=== PATIENT | male | born 1975 | race Caucasian/White ===

== ENCOUNTER 2017-01-09 08:08 | Emergency (ER) | payer OTHER ==
[2017-01-09] MEDS ORDERED: ASPIRIN 81 MG TABLET, CHEWABLE PO ONE (09:29)
[2017-01-09] MEDS ORDERED: HYDROCODONE/ACETAMINOPHEN 5-325 MG TABLET PO ONE (09:32)
--- NOTE | 2017-01-09 09:33 | ER Document Report ---
ED General - General Chief Complaint: Arm Pain Stated Complaint: LEFT ARM PAIN/NUMBNESS Time Seen by Provider: 01/09/17 09:18 Mode of Arrival: Ambulatory Information source: Patient Notes: 41-year-old male presents with complaints of left elbow pain rating to his shoulder. Patient notes it hurts when he pronates and supinates, otherwise he does not have any pain. Patient denies any chest pain shortness of breath difficulty breathing. Patient notes that he has had a history of 2 stents placed on the left. Patient denies any other concerns TRAVEL OUTSIDE OF THE [place] IN LAST 30 DAYS: No - HPI Onset: Yesterday - Currently 20 hour Onset/Duration: Persistent Quality of pain: Sharp Severity: Mild Pain Level: 1 Associated symptoms: Other Exacerbated by: Movement Relieved by: Denies Similar symptoms previously: No Recently seen / treated by doctor: Yes - Related Data Allergies/Adverse Reactions: codeine [Codeine] Allergy (Verified 09/24/10 11:32) Pruritis Past Medical History - Social History Smoking Status: Never Smoker Cigarette use (# per day): No Chew tobacco use (# tins/day): No Smoking Education Provided: No Family History: Reviewed & Not Pertinent Patient has suicidal ideation: No Patient has homicidal ideation: No - Past Medical History Cardiac Medical History: Denies: Hx Heart Attack, Hx Hypertension Pulmonary Medical History: Denies: Hx Asthma, Hx Bronchitis, Hx COPD, Hx Pneumonia, Hx Tuberculosis Neurological Medical History: Denies: Hx Cerebrovascular Accident, Hx Seizures Renal/ Medical History: Denies: Hx Peritoneal Dialysis GI Medical History: Denies: Hx Hepatitis, Hx Hiatal Hernia, Hx Ulcer Musculoskeltal Medical History: Infectious Medical History: Denies: Hx Hepatitis Past Surgical History: Denies: Hx Open Heart Surgery, Hx Pacemaker Review of Systems - Review of Systems Notes: REVIEW OF SYSTEMS: CONSTITUTIONAL : Denies fever, chills, or sweats. Denies recent illness. EENT: Denies eye, ear, throat, or mouth pain or symptoms. Denies nasal or sinus congestion or discharge. Denies throat, tongue, or mouth swelling or difficulty swallowing. CARDIOVASCULAR: Denies chest pain. Denies palpitations or racing or irregular heart beat. Denies ankle edema. RESPIRATORY: Denies cough, cold, or chest congestion. Denies shortness of breath, difficulty breathing, or wheezing. GASTROINTESTINAL: Denies abdominal pain or distention. Denies nausea, vomiting , or diarrhea. Denies blood in vomitus, stools, or per rectum. Denies black, tarry stools. Denies constipation. GENITOURINARY: Denies difficulty urinating, painful urination, burning, frequency, blood in urine, or discharge. MUSCULOSKELETAL: Admits to left elbow pain SKIN: Denies rash, lesions or sores. HEMATOLOGIC : Denies easy bruising or bleeding. LYMPHATIC: Denies swollen, enlarged glands. NEUROLOGICAL: Denies confusion or altered mental status. Denies passing out or loss of consciousness. Denies dizziness or lightheadedness. Denies headache. Denies weakness or paralysis or loss of use of either side. Denies problems with gait or speech. Denies sensory loss, numbness, or tingling. Denies seizures. PSYCHIATRIC: Denies anxiety or stress. Denies depression, suicidal ideation, or homicidal ideation. ALL OTHER SYSTEMS REVIEWED AND NEGATIVE. Dictation was performed using [employer] voice recognition software PHYSICAL EXAMINATION: GENERAL: Well-appearing, well-nourished and in no acute distress. HEAD: Atraumatic, normocephalic. EYES: Pupils equal round and reactive to light, extraocular movements intact, sclera anicteric, conjunctiva are normal. ENT: Nares patent, oropharynx clear without exudates. Moist mucous membranes. NECK: Normal range of motion, supple without lymphadenopathy LUNGS: Breath sounds clear to auscultation bilaterally and equal. No wheezes rales or rhonchi. HEART: Regular rate and rhythm without murmurs ABDOMEN: Soft, nontender, nondistended abdomen. No guarding, no rebound. No masses appreciated. Musculoskeletal: Normal range of motion, no pitting or edema. No cyanosis. Patient has pain sharp at the elbow with movement of the elbow NEUROLOGICAL: Cranial nerves grossly intact. Normal speech, normal gait. Normal sensory, motor exams PSYCH: Normal mood, normal affect. SKIN: Warm, Dry, normal turgor, no rashes or lesions noted. Physical Exam - Vital signs Vitals: Temp Pulse Resp BP Pulse Ox 97.6 F 79 16 150/92 H 97 01/09/17 08:09 01/09/17 08:09 01/09/17 08:09 01/09/17 08:09 01/09/17 08:09 Course - Re-evaluation Re-evalutation: 01/09/17 10:44 This pain is completely noncardiac in nature, it is easily reproducible worsens with movement. He has no chest pain involvement. However given his history I did do cardiac enzymes to rule out any life-threatening issues 01/09/17 10:56 Cardiac enzymes were negative EKG was normal patient otherwise looks well. I will therefore discharge him as his pain is completely reproducible and is a nerve impingement in the elbow Instructed to follow-up with his chemistry technologist and states he will do so After performing a Medical Screening Examination, I estimate there is LOW risk for RUPTURED ESOPHAGUS, PNEUMOTHORAX, PULMONARY EMBOLISM, ACUTE CORONARY SYNDROME, OR THORACIC AORTIC DISSECTION, thus I consider the discharge disposition reasonable. I have reevaluated this patient multiple times and no significant life threatening changes are noted. The patient and I have discussed the diagnosis and risks, and we agree with discharging home with close follow-up. We also discussed returning to the Emergency Department immediately if new or worsening symptoms occur. We have discussed the symptoms which are most concerning (e.g., bloody sputum, worsening pain or shortness of breath) that necessitate immediate return. - Vital Signs Vital signs: Temp Pulse Resp BP Pulse Ox 97.6 F 79 16 150/92 H 97 01/09/17 08:09 01/09/17 08:09 01/09/17 08:09 01/09/17 08:09 01/09/17 09:34 - Laboratory Result Diagrams: 01/09/17 09:56 01/09/17 09:56 Laboratory results interpreted by me: 01/09/17 09:56 RBC 5.67 H RDW 14.1 H - Diagnostic Test Radiology reviewed: Image reviewed, Reports reviewed - EKG Interpretation by Az EKG shows normal: Sinus rhythm, Dixon, Intervals, QRS Complexes Dixon/QRS: RBBB, LBBB Discharge - Discharge Clinical Impression: Left elbow pain Ulnar nerve impingement Qualifiers: Laterality: left Qualified Code(s): G56.22 - Lesion of ulnar nerve, left upper limb Condition: Stable Disposition: HOME, SELF-CARE Additional Instructions: At this point your pain is related to a nerve impingement, however if you begin to have chest pain this may be a different issue, return immediately if there are any other concerns Prescriptions: Hydrocodone/Acetaminophen [[place] 5-325 Tablet] 1 - 2 tab PO ASDIR PRN #15 tab PRN Reason: Prednisone [Deltasone 20 mg Tablet] 3 tab PO DAILY 5 Days Referrals: LEVAR CANTU MD [Primary Care Provider] - Follow up tomorrow
--- NOTE | 2017-01-09 09:57 | RADIOLOGY REPORT (SQ) ---
EXAM DESCRIPTION: CHEST SINGLE VIEW COMPLETED DATE/TIME: 01/09/2017 9:44 am REASON FOR STUDY: left arm pain COMPARISON: None. EXAM PARAMETERS: NUMBER OF VIEWS: One view. TECHNIQUE: Single frontal radiographic view of the chest acquired. RADIATION DOSE: NA LIMITATIONS: None. FINDINGS: LUNGS AND PLEURA: No opacities, masses or pneumothorax. No pleural effusion. MEDIASTINUM AND HILAR STRUCTURES: No masses. Contour normal. HEART AND VASCULAR STRUCTURES: Heart normal in size. Normal vasculature. BONES: No acute findings. HARDWARE: None in the chest. OTHER: No other significant finding. IMPRESSION: NO ACUTE RADIOGRAPHIC FINDING IN THE CHEST. TECHNICAL DOCUMENTATION: JOB ID: [id number]
[2017-01-09 10:13] LABS: ABSOLUTE BASOPHILS # (AUTO) 0.1 10^3/uL (0.0-0.2); ABSOLUTE EOSINOPHILS # (AUTO) 0.4 10^3/uL (0.0-0.6); ABSOLUTE LYMPHOCYTES (AUTO) 3.8 10^3/uL (0.5-4.7); ABSOLUTE MONOCYTES (AUTO) 0.6 10^3/uL (0.1-1.4); ABSOLUTE NEUT (AUTO) 4.2 10^3/uL (1.7-8.2); EOSINOPHILS % (AUTO) 4.1 % (0-6); HEMATOCRIT 50.4 % (37.9-51.0); HEMOGLOBIN 16.5 g/dL (13.5-17.0); HGB HCT DIFFERENCE -0.9; LYMPHOCYTES % (AUTO) 41.8 % (13-45); MEAN CORPUSCULAR HEMOGLOBIN 29.1 pg (27.0-33.4); MEAN CORPUSCULAR HGB CONC 32.7 g/dL (32.0-36.0); MEAN CORPUSCULAR VOLUME 89 fl (80-97); RED BLOOD COUNT 5.67 10^6/uL (4.35-5.55); RED CELL DISTRIBUTION WIDTH 14.1 % (11.5-14.0); SEGMENTED NEUTROPHILS % (AUTO) 46.1 % (42-78)
[2017-01-09 10:30] LABS: ALANINE AMINOTRANSFERASE 32 U/L (21-72); ALBUMIN 4.4 g/dL (3.5-5.0); ALKALINE PHOSPHATASE 59 U/L (38-126); ANION GAP 10 (5-19); ASPARTATE AMINO TRANSFERASE 21 U/L (17-59); BILIRUBIN,DIRECT 0.3 mg/dL (0.0-0.4); BILIRUBIN,TOTAL 0.5 mg/dL (0.2-1.3); BLOOD UREA NITROGEN 13 mg/dL (7-20); CALCIUM 9.9 mg/dL (8.4-10.2); CARBON DIOXIDE 26 mmol/L (22-30); CHLORIDE 105 mmol/L (98-107); CREATINE KINASE 85 U/L (55-170); CREATININE RESULT 1.07 mg/dL (0.52-1.25); GLUCOSE 79 mg/dL (75-110); POTASSIUM 4.6 mmol/L (3.6-5.0); TOTAL PROTEIN 7.7 g/dL (6.3-8.2)
[2017-01-09 10:42] LABS: CREATINE KINASE MB 0.54 ng/mL (<4.55); TROPONIN I < 0.012 ng/mL
[2017-01-09 11:14] VITALS: BP 132/91
--- NOTE | 2017-01-09 13:02 | EKG REPORT ---
SEVERITY:- ABNORMAL ECG - SINUS RHYTHM RBBB AND LAFB : Confirmed by: Rosa Sandhu MD 09-Jan-2017 13:01:43
== END 2017-01-09 11:14 | disposition home or self-care (01) ==
LOC: ER 08:08
DX: G56.22 Lesion of ulnar nerve, left upper limb (principal); M25.522 Pain in left elbow; I45.2 Bifascicular block; Z98.61 Coronary angioplasty status; Z88.5 Allergy status to narcotic agent
CPT/HCPCS: 36415; 71010; 80053; 82550; 82553; 84484; 85025; 93005; 93010; 99284

== ENCOUNTER 2017-08-03 01:04 | Emergency (ER) | payer SELFPAY ==
--- NOTE | 2017-08-03 01:50 | ER Document Report ---
HPI - HPI Patient complains to provider of: foot pain Pain Level: 5 Context: Patient is a 41-year-old male presents emergency department complaining of left posterior heel pain. Patient states that he had issues with this approximately 2 months ago that improved with diclofenac and steroids. States that his symptoms this time started yesterday and has been taking the diclofenac without any significant improvement in his symptoms. Patient states that he has not a runner but that he does walk a lot. States it is very tender to touch and erythematous but denies any break in the skin. He also admits today of having discomfort at the base of his chest and xiphoid process. Patient states that superficially tender denies any direct trauma. Otherwise he has not followed up with a primary care doctor regarding today's visit. Past medical history significant for coronary artery disease with stents. Past Medical History - Social History Smoking Status: Never Smoker Family History: Reviewed & Not Pertinent - Past Medical History Cardiac Medical History: Denies: Hx Heart Attack, Hx Hypertension Pulmonary Medical History: Denies: Hx Asthma, Hx Bronchitis, Hx COPD, Hx Pneumonia, Hx Tuberculosis Neurological Medical History: Denies: Hx Cerebrovascular Accident, Hx Seizures Renal/ Medical History: Denies: Hx Peritoneal Dialysis GI Medical History: Denies: Hx Hepatitis, Hx Hiatal Hernia, Hx Ulcer Musculoskeltal Medical History: Infectious Medical History: Denies: Hx Hepatitis Past Surgical History: Reports: Hx Kidney (Renal Surgery). Denies: Hx Open Heart Surgery, Hx Pacemaker Vertical Provider Document - CONSTITUTIONAL Agree With Documented VS: Yes Notes: PHYSICAL EXAM GENERAL: Alert, interacts well. LUNGS: Clear to auscultation bilaterally, no wheezes, rales, or rhonchi. No respiratory distress. HEART: Regular rate and rhythm. No murmurs, gallops, or rubs. Xiphoid process tenderness superficial palpation without any evidence of ecchymosis, edema, crepitus ABDOMEN: Soft, nondistended, nontender. No guarding, rebound, or rigidity.. Bowel sounds present in all 4 quadrants. EXTREMITIES: Tenderness over the medial aspect of the left heel medial to the Achilles tendon insertion. Achilles tendon nontender to palpation with full range of motion. Minimal overlying erythema. Moves all 4 extremities spontaneously. No edema, radial and dorsalis pedis pulses 2/4 bilaterally. No cyanosis. NEUROLOGICAL: Alert and oriented x4. Normal speech. PSYCH: Normal affect, normal mood. SKIN: Warm, dry, normal turgor. No rashes or lesions noted. - INFECTION CONTROL TRAVEL OUTSIDE OF THE [place] IN LAST 30 DAYS: Yes COUNTRY TRAVELED TO/FROM: [place] - RESPIRATORY O2 Sat by Pulse Oximetry: 99 Course - Re-evaluation Re-evalutation: 08/03/17 03:20 Patient is a 41-year-old male is admitted medically stable, no acute distress and afebrile. No evidence of sternum injury on x-ray. Left heel presentation and benign x-ray findings are consistent with bursitis. Discussed with patient that this is an overuse and chronic rubbing of the site injury. States that he can continue to take the anti-inflammatories but that rest and staying off of it will help it heal faster. Patient has accepted crutches and declining any pain medication at this time. We will give him referral for orthopedic/ podiatry. - Vital Signs Vital signs: Temp Pulse Resp BP Pulse Ox 98.1 F 70 18 119/75 99 08/03/17 01:21 08/03/17 01:21 08/03/17 01:21 08/03/17 01:21 08/03/17 01:21 - Diagnostic Test Radiology reviewed: Image reviewed, Reports reviewed Discharge - Discharge Clinical Impression: Chest wall pain Bursitis of posterior heel Qualifiers: Laterality: left Qualified Code(s): M77.52 - Other enthesopathy of left foot Condition: Good Disposition: HOME, SELF-CARE Instructions: Chest Wall Pain ([facility]), Bursitis ([facility]), Use of Crutches ([facility]), Anti-Inflammatory Medication ([facility]) Referrals: GALO VALADEZ DPM [ACTIVE STAFF] - Follow up in 1 week (Podiatry) KAREN DESAI MD [ACTIVE STAFF] - Follow up in 1 week (Ortho)
--- NOTE | 2017-08-03 02:40 | RADIOLOGY REPORT (SQ) ---
EXAM DESCRIPTION: OS CALCIS/HEEL LEFT CLINICAL HISTORY: pain COMPARISON: None. FINDINGS: 2 views of the left calcaneus. No acute fracture or dislocation. No plantar calcaneal spur. Enthesophyte at the Achilles tendon insertion. Normal osseous mineralization. IMPRESSION: No acute fracture or dislocation.
--- NOTE | 2017-08-03 03:06 | RADIOLOGY REPORT (SQ) ---
EXAM DESCRIPTION: STERNUM CLINICAL HISTORY: pain at xiphoid process COMPARISON: None. FINDINGS: 2 views of the sternum. No acute fracture of the sternum identified. Normal osseous mineralization. IMPRESSION: No acute fracture of the sternum identified.
[2017-08-03 03:50] VITALS: BP 138/74
== END 2017-08-03 03:50 | disposition home or self-care (01) ==
LOC: ER 01:04
DX: M77.52 Other enthesopathy of left foot and ankle (principal); R07.89 Other chest pain; M79.672 Pain in left foot; I25.10 Atherosclerotic heart disease of native coronary artery without angina pectoris; Z95.5 Presence of coronary angioplasty implant and graft
CPT/HCPCS: 71120; 99283

== ENCOUNTER 2019-06-15 23:13 | Emergency (ER) | payer BC ==
[2019-06-16] MEDS ORDERED: LIDOCAINE 1%/EPINEPHRINE INJ 20 ML VIAL INJ ONE (01:09)
--- NOTE | 2019-06-16 01:10 | ER Document Report ---
ED Skin Rash/Insect Bite/Abscs - General Chief Complaint: Skin Sore(s) Stated Complaint: LUMP IN GROIN Time Seen by Provider: 06/16/19 01:03 Notes: Patient is a 43-year-old male that comes emergency department for chief complaint of a tender, red, hardening, swelling area in the right groin. This is been progressive over the past 2 days. He denies fever/chills, nausea/vomiting, or any other complaints. He states he has had a pilonidal cyst abscess but denies history of MRSA or abscesses otherwise. He denies any daily medications. He denies history of IV drug abuse. TRAVEL OUTSIDE OF THE [place] IN LAST 30 DAYS: No COUNTRY TRAVELED TO/FROM: [place] - Related Data Allergies/Adverse Reactions: codeine [Codeine] Allergy (Verified 09/24/10 11:32) Pruritis Past Medical History - General Information source: Patient - Social History Smoking Status: Never Smoker Drug Abuse: None Lives with: Family Family History: Reviewed & Not Pertinent Patient has suicidal ideation: No Patient has homicidal ideation: No - Past Medical History Cardiac Medical History: Denies: Hx Heart Attack, Hx Hypertension Pulmonary Medical History: Denies: Hx Asthma, Hx Bronchitis, Hx COPD, Hx Pneumonia, Hx Tuberculosis Neurological Medical History: Denies: Hx Cerebrovascular Accident, Hx Seizures Renal/ Medical History: Denies: Hx Peritoneal Dialysis GI Medical History: Denies: Hx Hepatitis, Hx Hiatal Hernia, Hx Ulcer Musculoskeletal Medical History: Infectious Medical History: Denies: Hx Hepatitis Past Surgical History: Reports: Hx Kidney (Renal Surgery). Denies: Hx Open Heart Surgery, Hx Pacemaker - Immunizations Immunizations up to date: Yes Hx Diphtheria, Pertussis, Tetanus Vaccination: Yes Review of Systems - Review of Systems Constitutional: No symptoms reported EENT: No symptoms reported Cardiovascular: No symptoms reported Respiratory: No symptoms reported Gastrointestinal: No symptoms reported Genitourinary: No symptoms reported Male Genitourinary: No symptoms reported Musculoskeletal: No symptoms reported Skin: See HPI Hematologic/Lymphatic: No symptoms reported Neurological/Psychological: No symptoms reported Physical Exam - Vital signs Vitals: Temp Pulse Resp BP Pulse Ox 98.0 F 103 H 20 143/91 H 98 06/15/19 23:23 06/15/19 23:23 06/15/19 23:23 06/15/19 23:23 06/15/19 23:23 - Notes Notes: GENERAL: Alert, interacts well. No acute distress. HEAD: Normocephalic, atraumatic. EYES: Pupils equal, round, and reactive to light. Extraocular movements intact. ENT: Oral mucosa moist, tongue midline. Oropharynx unremarkable. Airway patent. LUNGS: Clear to auscultation bilaterally, no wheezes, rales, or rhonchi. No respiratory distress. HEART: Regular rate and rhythm. No murmur ABDOMEN: Soft, non-tender. Non-distended. GENITOURINARY: Along the right inguinal area there is an indurated area with a small fluctuant head with some minimal surrounding erythema. This does not extend to the genitals, does not extend down to the perineum or anus. No nearby lymphadenopathy noted. No other concerning findings. EXTREMITIES: Moves all 4 extremities spontaneously. No edema, normal radial and dorsalis pedis pulses bilaterally. No cyanosis. BACK: no cervical, thoracic, lumbar midline tenderness. No saddle anesthesia, normal distal neurovascular exam. Moves all extremities in full range of motion. NEUROLOGICAL: Alert and oriented x3. Normal speech. Cranial nerves II through XII grossly intact. PSYCH: Normal affect, normal mood. SKIN: Warm, dry, normal turgor. No rashes or lesions noted. Course - Re-evaluation Re-evalutation: Areas consistent with a developing abscess with a fluctuant head and induration but no extension to the genitals or perineum. No fever. Patient has borderline tachycardic but he also refuses pain medication. He is not febrile. Patient tolerated procedure without difficulty, because the area was fairly large small amount of packing was placed to keep this open, this was discussed with patient, discussed return precautions in detail, wound care in detail. Patient states understanding and agreement. - Vital Signs Vital signs: Temp Pulse Resp BP Pulse Ox 98.1 F 110 H 19 144/90 H 99 06/16/19 01:56 06/16/19 01:56 06/16/19 01:56 06/16/19 01:56 06/16/19 01:56 Procedures - Incision and Drainage Right inguinal abscess Type: Single Anesthetic type: 1% Lidocaine w/epi mL's of anesthetic: 8 Blade size: 11 I&D procedure: Shurclens applied, Iodoform packing placed Incision Method: Incision made by scalpel Amount/type of drainage: Small amount of purulent drainage, small amount of blood Discharge - Discharge Clinical Impression: Groin abscess Condition: Stable Disposition: HOME, SELF-CARE Additional Instructions: The abscess has been opened/drained, keep absorbing dressing over the area, keep area clean with soap and water. Remove the packing in 2 days. Take the antibiotics as prescribed to completion. Follow-up with primary care. Return if you worsen including developing or spreading redness, fever/chills, or any other concerning symptoms. Prescriptions: Sulfamethoxazole/Trimethoprim [Bactrim Ds Tablet] 1 each PO BID #14 tablet
[2019-06-16] MEDS ORDERED: SULFAMETHOXAZOLE/TRIMETHOPRIM 800-160 MG TABLET PO ONE (01:49)
[2019-06-16 01:58] VITALS: BP 144/90
== END 2019-06-16 01:57 | disposition home or self-care (01) ==
LOC: ER 23:13
DX: L02.214 Cutaneous abscess of groin (principal); Z88.6 Allergy status to analgesic agent; Z88.5 Allergy status to narcotic agent
CPT/HCPCS: 99283; 10060; A6266; J3490

== ENCOUNTER 2019-10-30 22:30 | Inpatient (IN) | payer BC ==
[2019-10-30 23:03] LABS: ABSOLUTE EOSINOPHILS # (AUTO) 0.4 10^3/uL (0.0-0.6); ABSOLUTE LYMPHOCYTES (AUTO) 4.4 10^3/uL (0.5-4.7); ABSOLUTE MONOCYTES (AUTO) 0.7 10^3/uL (0.1-1.4); ABSOLUTE NEUT (AUTO) 10.7 10^3/uL (1.7-8.2); BASOPHILS % (AUTO) 0.3 % (0-2); EOSINOPHILS % (AUTO) 2.5 % (0-6); HEMOGLOBIN 15.2 g/dL (13.5-17.0); LYMPHOCYTES % (AUTO) 26.9 % (13-45); MEAN CORPUSCULAR HEMOGLOBIN 31.4 pg (27.0-33.4); MEAN CORPUSCULAR HGB CONC 36.2 g/dL (32.0-36.0); MEAN CORPUSCULAR VOLUME 87 fl (80-97); MONOCYTES % (AUTO) 4.2 % (3-13); PLATELET COUNT 310 10^3/uL (150-450); RED BLOOD COUNT 4.85 10^6/uL (4.35-5.55); RED CELL DISTRIBUTION WIDTH 14.5 % (11.5-14.0); SEGMENTED NEUTROPHILS % (AUTO) 66.1 % (42-78); TOTAL CELLS COUNTED % (AUTO) 100 %; WHITE BLOOD COUNT 16.2 10^3/uL (4.0-10.5)
--- NOTE | 2019-10-30 23:30 | ER Document Report ---
ED General - General Chief Complaint: Chest Pain Stated Complaint: CHEST PAIN Time Seen by Provider: 10/30/19 23:04 Notes: 43-year-old male presents the emergency department complaining of central chest pain that radiates to his left arm starting approximately an hour prior to arrival. States that it is a pressure and a stabbing type of pain associated with feeling like no matter how deep he breathes he cannot get a deep breath. States the pain was originally 10 out of 10, he took several baby aspirin and then walked around and tried changing position, by the time EMS got there was a 9 out of 10, they gave him 1 spray of nitroglycerin and it went down to a 5 out of 10, with a second spray went out down to 1 out of 10 and now he states that he does not have any pain. States he feels a little bit like he is a bruise there but denies any true pain. Of note patient had a abnormal stress test in 2016 and had 2 cardiac stents placed at [facility]. Patient states that the last time he saw Dr. Lloyd was greater than 2 years ago. Has not had a stress test since then. Does not receive any treatment for any medical problems. TRAVEL OUTSIDE OF THE [place] IN LAST 30 DAYS: No - Related Data Allergies/Adverse Reactions: codeine [Codeine] Allergy (Verified 09/24/10 11:32) Pruritis Home Medications: pt is supposed to be taking metoprolol and atorvastatin Past Medical History - General Information source: Patient - Social History Smoking Status: Current Every Day Smoker Frequency of alcohol use: Rare Drug Abuse: None Family History: Reviewed & Not Pertinent Patient has suicidal ideation: No Patient has homicidal ideation: No - Past Medical History Cardiac Medical History: Reports: Hx Hypertension Denies: Hx Heart Attack Pulmonary Medical History: Denies: Hx Asthma, Hx Bronchitis, Hx COPD, Hx Pneumonia, Hx Tuberculosis Neurological Medical History: Denies: Hx Cerebrovascular Accident, Hx Seizures Renal/ Medical History: Denies: Hx Peritoneal Dialysis GI Medical History: Denies: Hx Hepatitis, Hx Hiatal Hernia, Hx Ulcer Musculoskeletal Medical History: Infectious Medical History: Denies: Hx Hepatitis Past Surgical History: Reports: Hx Kidney (Renal Surgery). Denies: Hx Open Heart Surgery, Hx Pacemaker - Immunizations Immunizations up to date: Yes Hx Diphtheria, Pertussis, Tetanus Vaccination: Yes Review of Systems - Review of Systems Constitutional: No symptoms reported EENT: No symptoms reported Cardiovascular: See HPI, Chest pain Respiratory: See HPI, Short of breath Gastrointestinal: No symptoms reported. denies: Diarrhea, Nausea, Vomiting Musculoskeletal: See HPI -: Yes All other systems reviewed and negative Physical Exam - Vital signs Vitals: Pulse Ox 97 10/30/19 22:32 Interpretation: Normal - Notes Notes: GENERAL: Alert, interacts well. No acute distress. HEAD: Normocephalic, atraumatic EYES: Pupils equal, round and reactive to light, extraocular movements intact. ENT: Oral mucosa moist, tongue midline. NECK: Full range of motion, supple, trachea midline. LUNGS: Clear to auscultation bilaterally, no wheezes, rales or rhonchi, no respiratory distress. HEART: Regular rate and rhythm, no murmurs, gallops, rubs. ABDOMEN: Soft, nontender, nondistended, bowel sounds present in all 4 quadrants. EXTREMITIES: Moves all 4 extremities spontaneously, no edema, radial and dorsalis pedis pulses 2/4 bilaterally. No cyanosis. NEUROLOGICAL: Alert and oriented x3, normal speech. PSYCH: Normal mood, normal affect. SKIN: Warm, Dry, normal turgor, no rashes or lesions noted. Course - Re-evaluation Re-evalutation: 10/31/19 00:50 Patient is now chest pain-free, took an appropriate dose of aspirin prior to arrival, pain was relieved by nitro for EMS, CBC shows leukocytosis at 16.2, CMP grossly unremarkable, troponin is indeterminate 0.084, EKG is nonischemic, chest x-ray shows no acute process. Patient has been given Lovenox and Nitropaste has been placed on his chest. 10/31/19 00:50 Patient will be discussed with Dr. Wilson for admission. 10/31/19 00:54 Dr. Wilson requests a repeat troponin as he is concerned about keeping a patient whose troponin is climbing too quickly. It will be repeated. 10/31/19 03:47 Repeat troponin is 0.217. Patient remains chest pain-free with only Nitropaste on his chest. Dr. Wilson requests repeat EKG. So long as the EKG is not changed he agrees to admit the patient to telemetry for a non-STEMI. - Vital Signs Vital signs: Temp Pulse Resp BP Pulse Ox 97.9 F 77 17 123/86 H 95 04/07/20 22:38 10/30/19 22:38 10/30/19 23:01 10/30/19 23:00 10/30/19 23:01 - Laboratory Result Diagrams: 10/30/19 22:50 10/30/19 23:25 Laboratory results interpreted by me: 10/30/19 10/30/19 22:50 23:25 WBC 16.2 H MCHC 36.2 H RDW 14.5 H Absolute Neuts (auto) 10.7 H Sodium 135.7 L Glucose 113 H Creatine Kinase 256 H - EKG Interpretation by Me Additional EKG results interpreted by me: 10/30/19 23:30 EKG shows sinus rhythm at a rate of 77, left anterior hemiblock, right bundle branch block, no ST segment elevations or depressions, T wave inversion noted in lead III per my interpretation. 10/31/19 03:48 Repeat EKG shows sinus rhythm at a rate of 70, RBBB and LAHB, no ST segment elevation or depression, T-wave onversions isolated to lead III, no change from first EKG per my interpretation. Discharge - Discharge Clinical Impression: NSTEMI (non-ST elevated myocardial infarction) Condition: Fair Disposition: ADMITTED INPATIENT Admitting Provider: Steve (Hospitalist) Unit Admitted: Telemetry
[2019-10-30 23:48] LABS: ALKALINE PHOSPHATASE 66 U/L (38-126); ANION GAP 10 (5-19); ASPARTATE AMINO TRANSFERASE 28 U/L (17-59); BILIRUBIN,DIRECT 0.3 mg/dL (0.0-0.4); BILIRUBIN,TOTAL 0.3 mg/dL (0.2-1.3); BLOOD UREA NITROGEN 8 mg/dL (7-20); CALCIUM 9.1 mg/dL (8.4-10.2); CARBON DIOXIDE 22 mmol/L (22-30); CHLORIDE 104 mmol/L (98-107); CREATINE KINASE 256 U/L (55-170); GLUCOSE 113 mg/dL (75-110); POTASSIUM 3.7 mmol/L (3.6-5.0); TOTAL PROTEIN 6.9 g/dL (6.3-8.2)
[2019-10-31] LABS: CREATINE KINASE MB 1.07 ng/mL (<4.55)
[2019-10-31 00:08] LABS: TROPONIN I 0.084 ng/mL
--- NOTE | 2019-10-31 00:46 | RADIOLOGY REPORT (SQ) ---
EXAM DESCRIPTION: XR CHEST 2 VIEWS COMPLETED DATE/TME: 10/30/2019 00:00 CLINICAL HISTORY: 43 years Male, chest pain COMPARISON: None. NUMBER OF VIEWS/TECHNIQUE: 2, PA/Lateral FINDINGS: Adequate lung volume, clear parenchyma, normal cardiac silhouette, and intact bony thorax. IMPRESSION: No acute cardiopulmonary findings.
[2019-10-31] MEDS ORDERED: NITROGLYCERIN 2% OINTMENT 1 GM PACKET TP ONE (00:53)
[2019-10-31] MEDS: ENOXAPARIN SODIUM INJ 100 MG/1 ML DISP.SYRIN SUBCUT SCH ×2 (01:31→09:41)
[2019-10-31] MEDS ORDERED: ACETAMINOPHEN 325 MG TABLET PO PRN (03:32)
[2019-10-31] MEDS ORDERED: NITROGLYCERIN 0.4 MG/TAB 25 TAB/BOTTLE SL PRN (03:32)
[2019-10-31] MEDS ORDERED: ATORVASTATIN CALCIUM 80 MG TABLET PO SCH (03:45)
--- NOTE | 2019-10-31 04:35 | PDOC H&P ---
History of Present Illness Admission Date/PCP: 10/31/19 03:48 Patient complains of: Chest pain History of Present Illness: ISAK ALVARADO JR is a 43 year old male with a past medical history of hypertension, coronary artery disease status post coronary artery stents at [facility] 2016, tobacco dependence without medications for at least 2 years. He presents with sudden onset of 10 out of 10 left-sided chest pain which radiated to to his left shoulder exacerbated by deep breathing and exertion. He took 2 aspirin and called EMS who administered inhaled nitroglycerin completely resolving his pain after 2 treatments. In the emergency department he is found to have an indeterminate troponin which is risen from 0.0820.21, his EKG is unchanged from previous with right bundle branch block and left anterior fascicular block. He remains pain-free and referred to the hospitalist for admission. Past Medical History Cardiac Medical History: Reports: Hypertension Denies: Myocardial Infarction Pulmonary Medical History: Denies: Asthma, Bronchitis, Chronic Obstructive Pulmonary Disease (COPD), Pne [place], Tuberculosis Neurological Medical History: Denies: Seizures GI Medical History: Denies: Hepatitis, Hiatal Hernia Musculoskeltal Medical History: Hematology: Denies: Anemia, Sickle Cell Disease Past Surgical History Past Surgical History: Denies: Pacemaker Social History Information Source: Patient, [facility] Records Smoking Status: Current Every Day Smoker Hx Recreational Drug Use: No Drugs: None - Advance Directive Resuscitation Status: Full Code Family History Family History: Hypertension Parental Family History Reviewed: Yes Children Family History Reviewed: Yes Sibling(s) Family History Reviewed.: Yes Medication/Allergy Home Medications: Hydrocodone/Acetaminophen [Arp 5-325 Tablet] 1 - 2 tab PO ASDIR PRN #15 tab 01/09/17 Prednisone [Deltasone 20 mg Tablet] 3 tab PO DAILY 5 Days tablet 01/09/17 Sulfamethoxazole/Trimethoprim [Bactrim Ds Tablet] 1 each PO BID #14 tablet 06/16/19 Allergies/Adverse Reactions: codeine [Codeine] Allergy (Verified 09/24/10 11:32) Pruritis Review of Systems Constitutional: ABSENT: chills, fever(s), headache(s), weight gain, weight loss Eyes: ABSENT: visual disturbances Ears: ABSENT: hearing changes Cardiovascular: ABSENT: chest pain, dyspnea on exertion, edema, orthropnea, palpitations Respiratory: ABSENT: cough, hemoptysis Gastrointestinal: ABSENT: abdominal pain, constipation, diarrhea, hematemesis, hematochezia, nausea, vomiting Genitourinary: ABSENT: dysuria, hematuria Musculoskeletal: ABSENT: joint swelling Integumentary: ABSENT: rash, wounds Neurological: ABSENT: abnormal gait, abnormal speech, confusion, dizziness, focal weakness, syncope Psychiatric: ABSENT: anxiety, depression, homidical ideation, suicidal ideation Endocrine: ABSENT: cold intolerance, heat intolerance, polydipsia, polyuria Hematologic/Lymphatic: ABSENT: easy bleeding, easy bruising Physical Exam Vital Signs: Temp Pulse Resp BP Pulse Ox 97.9 F 77 14 126/88 H 96 10/30/19 22:38 10/30/19 22:38 10/31/19 04:01 10/31/19 04:01 10/31/19 04:01 Intake & Output 10/29/19 10/30/19 10/31/19 11:59 11:59 11:59 Weight 88.451 kg General appearance: PRESENT: no acute distress, well-developed, well-nourished Head exam: PRESENT: atraumatic, normocephalic Eye exam: PRESENT: conjunctiva pink, EOMI, PERRLA. ABSENT: scleral icterus Ear exam: PRESENT: normal external ear exam Mouth exam: PRESENT: moist, tongue midline Neck exam: ABSENT: carotid bruit, JVD, lymphadenopathy, thyromegaly Respiratory exam: PRESENT: clear to auscultation marlene. ABSENT: rales, rhonchi, wheezes Cardiovascular exam: PRESENT: RRR. ABSENT: diastolic murmur, rubs, systolic murmur Pulses: PRESENT: normal dorsalis pedis pul Vascular exam: PRESENT: normal capillary refill GI/Abdominal exam: PRESENT: normal bowel sounds, soft. ABSENT: distended, guarding, mass, organolmegaly, rebound, tenderness Rectal exam: PRESENT: deferred Extremities exam: PRESENT: full ROM. ABSENT: calf tenderness, clubbing, pedal edema Neurological exam: PRESENT: alert, awake, oriented to person, oriented to place, oriented to time, oriented to situation, CN II-XII grossly intact. ABSENT: motor sensory deficit Psychiatric exam: PRESENT: appropriate affect, normal mood. ABSENT: homicidal ideation, suicidal ideation Skin exam: PRESENT: dry, intact, warm. ABSENT: cyanosis, rash Results Laboratory Results: 10/30/19 22:50 04/07/20 23:25 10/30/19 10/30/19 10/30/19 22:50 22:50 23:25 WBC 16.2 H RBC 4.85 Hgb 15.2 Hct 42.0 MCV 87 MCH 31.4 MCHC 36.2 H RDW 14.5 H Plt Count 310 Seg Neutrophils % 66.1 Sodium Cancelled 135.7 L Potassium Cancelled 3.7 Chloride Cancelled 104 Carbon Dioxide Cancelled 22 Anion Gap Cancelled 10 BUN Cancelled 8 Creatinine Cancelled 0.86 Est GFR ( Amer) Cancelled > 60 Est GFR (Non-Af Amer) Cancelled Glucose Cancelled 113 H Calcium Cancelled 9.1 Total Bilirubin Cancelled 0.3 AST Cancelled 28 Alkaline Phosphatase Cancelled 66 Total Protein Cancelled 6.9 Albumin Cancelled 4.0 10/30/19 10/30/19 10/30/19 22:50 22:50 23:25 Creatine Kinase Cancelled 256 H CK-MB (CK-2) Cancelled Troponin I Cancelled 10/30/19 10/31/19 10/31/19 23:25 01:45 02:38 Creatine Kinase CK-MB (CK-2) 1.07 Troponin I 0.084 Cancelled 0.217 Impressions: Chest X-Ray 10/30/19 00:00 IMPRESSION: No acute cardiopulmonary findings. Assessment and Plan - Diagnosis (1) NSTEMI (non-ST elevated myocardial infarction) Is this a current diagnosis for this admission?: Yes Plan: IMCU admission, aspirin, full dose Lovenox, nitroglycerin and Lopressor PRN. Follow-up serial cardiac enzymes, risk factor analysis and Sugar Reprocess Operator Head consult (2) Dyslipidemia Is this a current diagnosis for this admission?: Yes Plan: Initial lab draw was lipemic, Lipitor 80 ordered. Follow-up lipid profile (3) Hypertension Is this a current diagnosis for this admission?: Yes Plan: Nitroglycerin as needed, low-dose Lopressor as tolerated (4) Hyperglycemia Is this a current diagnosis for this admission?: Yes Plan: Possible unknown diabetes, follow-up A1c (5) Tobacco abuse Is this a current diagnosis for this admission?: Yes Plan: Tobacco cessation counseling performed, nicotine replacement options discussed. - Time Time Spent with patient: 25-34 minutes - Inpatient Certification Medical Necessity: Need Close Monitoring Due to Risk of Patient Decompensation
[2019-10-31 07:21] VITALS: BP 116/76
--- NOTE | 2019-10-31 08:10 | PDOC CONSULTATION ---
Consultation Consult Date: 10/31/19 Attending physician:: COREEN HWANG Provider Consulted: STUART HERBERT Consult reason:: NSTEMI History of Present Illness Admission Date/PCP: 10/31/19 03:48 History of Present Illness: ISAK ALVARADO JR is a 43 year old male with history of hypertension, hyperlipidemia, coronary artery disease status post coronary artery stents at [facility] 2016 for unstable angina, tobacco dependence without medications for at least 2 years who is consulted to our service for evaluation of elevated troponin. The patient was in his usual state of health until last night when, while at rest, had the sudden onset of chest pressure, localized to the center of the chest, radiating to the left shoulder and arm, lasting for approximately 15 minutes, associated with shortness of breath and mild diaphoresis. EMS was called and his pain resolved after 2 sublingual nitroglycerin. Since then he has remained hemodynamically stable. This morning he feels well and without recurrence of index symptoms. Physical exam on 10/31/2019: GENERAL: Pleasant and conversational. Oriented x3 with normal mood. Not in acute distress. Well groomed and well developed. HEENT: Normocephalic, atraumatic. Pupils equal. Sclerae anicteric. Oropharynx moist. NECK: No JVD. No carotid bruits. LUNGS: Clear to auscultation bilaterally. Normal respiratory effort without the use of accessory muscles or intercostal retractions. CARDIOVASCULAR: Regular rate and rhythm, normal S1 and S2 without murmurs, rubs, or gallops. PMI not displaced. ABDOMEN: No masses or tenderness to palpation. No bruit. No splenomegaly or hepatomegaly. No abdominal aorta bruit noted. EXTREMITIES: No edema, no cyanosis, no clubbing. +2 pulses femoral and pedal pulses bilaterally. SKIN: No lesions or rashes. MUSCULOSKELETAL: No chest tenderness to palpation. NEUROLOGIC: Nonfocal. No gross sensory or motor deficits bilateral upper or lower extremities. Past Medical History Cardiac Medical History: Reports: Hypertension Denies: Myocardial Infarction Pulmonary Medical History: Denies: Asthma, Bronchitis, Chronic Obstructive Pulmonary Disease (COPD), Pneumonia, Tuberculosis Neurological Medical History: Denies: Seizures GI Medical History: Denies: Hepatitis, Hiatal Hernia Musculoskeltal Medical History: Psychiatric Medical History: Denies: Depression Hematology: Denies: Anemia, Sickle Cell Disease Past Surgical History Past Surgical History: Denies: Pacemaker Social History Smoking Status: Current Every Day Smoker Cigarettes Packs Per Day: 1 Number of Years Smokin Hx Recreational Drug Use: No Drugs: None Hx Prescription Drug Abuse: No - Advance Directive Resuscitation Status: Full Code Family History Family History: Hypertension Parental Family History Reviewed: Yes Children Family History Reviewed: Yes Sibling(s) Family History Reviewed.: Yes Medication/Allergy Home Medications: Hydrocodone/Acetaminophen [[place] 5-325 Tablet] 1 - 2 tab PO ASDIR PRN #15 tab 01/09/17 Prednisone [Deltasone 20 mg Tablet] 3 tab PO DAILY 5 Days tablet 01/09/17 Sulfamethoxazole/Trimethoprim [Bactrim Ds Tablet] 1 each PO BID #14 tablet 06/16/19 Allergies/Adverse Reactions: codeine [Codeine] Allergy (Verified 09/24/10 11:32) Pruritis Physical Exam Vital Signs: Temp Pulse Resp BP Pulse Ox 97.5 F 64 18 118/81 96 10/31/19 05:49 10/31/19 05:49 10/31/19 05:49 10/31/19 05:49 10/31/19 05:49 Intake & Output 10/30/19 10/31/19 11/01/19 06:59 06:59 06:59 Weight 88.5 kg Results Laboratory Results: 10/30/19 22:50 10/30/19 23:25 10/30/19 10/30/19 10/30/19 22:50 22:50 23:25 WBC 16.2 H RBC 4.85 Hgb 15.2 Hct 42.0 MCV 87 MCH 31.4 MCHC 36.2 H RDW 14.5 H Plt Count 310 Seg Neutrophils % 66.1 Sodium Cancelled 135.7 L Potassium Cancelled 3.7 Chloride Cancelled 104 Carbon Dioxide Cancelled 22 Anion Gap Cancelled 10 BUN Cancelled 8 Creatinine Cancelled 0.86 Est GFR ( Amer) Cancelled > 60 Est GFR (Non-Af Amer) Cancelled Glucose Cancelled 113 H Calcium Cancelled 9.1 Total Bilirubin Cancelled 0.3 AST Cancelled 28 Alkaline Phosphatase Cancelled 66 Total Protein Cancelled 6.9 Albumin Cancelled 4.0 10/30/19 10/30/19 10/30/19 22:50 22:50 23:25 Creatine Kinase Cancelled 256 H CK-MB (CK-2) Cancelled Troponin I Cancelled 10/30/19 10/31/19 10/31/19 23:25 01:45 02:38 Creatine Kinase CK-MB (CK-2) 1.07 Troponin I 0.084 Cancelled 0.217 Impressions: Chest X-Ray 10/30/19 00:00 IMPRESSION: No acute cardiopulmonary findings. Current Medication List Generic Name Dose Route Start Last Admin Trade Name Ayden PRN Reason Stop Dose Admin Acetaminophen 650 mg 10/31/19 03:32 10/31/19 05:13 Tylenol 325 Mg Tablet PO 11/30/19 03:31 650 mg Q4HP PRN Administration FOR HEADACHE Aspirin 81 mg 10/31/19 10:00 Ecotrin 81 Mg Ec Tablet PO 11/30/19 09:59 DAILY YOSEPH Atorvastatin Calcium 80 mg 10/31/19 03:45 10/31/19 03:57 Lipitor 80 Mg Tablet PO 11/30/19 03:44 80 mg QHS YOSEPH Administration Enoxaparin Sodium 90 mg 10/31/19 00:30 10/31/19 01:31 Lovenox Inj 100 Mg/1 Ml Disp.Syrin SUBCUT 11/30/19 00:29 90 mg Q12 YOSEPH Administration Nitroglycerin 1 tab 10/31/19 03:32 Nitrostat 0.4 Mg (1/150 Gr) Tabs 25/Bottle SL Q5MP PRN FOR CHEST PAIN Sodium Chloride 2.5 ml 10/31/19 06:00 10/31/19 06:23 Saline Flush 2.5 Ml Monoject Prefil Syrin IV 11/30/19 05:59 Not Given Q8 YOSEPH Discontinued Medications Generic Name Dose Route Start Last Admin Trade Name Ayden PRN Reason Stop Dose Admin Nitroglycerin 1 gm 10/31/19 00:53 10/31/19 01:31 Nitrol 2% Ointment 1gm Packet TP 10/31/19 00:54 1 gm NOW ONE Administration 10/30/19 22:50 10/30/19 23:25 MCV 87 fl (80-97) 10/30/19 22:50 MCH 31.4 pg (27.0-33.4) 10/30/19 22:50 MCHC 36.2 g/dL (32.0-36.0) H 10/30/19 22:50 RDW 14.5 % (11.5-14.0) H 10/30/19 22:50 Seg Neutrophils % 66.1 % (42-78) 10/30/19 22:50 Chloride 104 mmol/L (98-107) 10/30/19 23:25 Carbon Dioxide 22 mmol/L (22-30) 10/30/19 23:25 Anion Gap 10 (5-19) 10/30/19 23:25 Est GFR ( Amer) > 60 (>60) 10/30/19 23:25 Est GFR (Non-Af Amer) Cancelled 10/30/19 22:50 Glucose 113 mg/dL (75-110) H 10/30/19 23:25 Calcium 9.1 mg/dL (8.4-10.2) 10/30/19 23:25 Total Bilirubin 0.3 mg/dL (0.2-1.3) 10/30/19 23:25 AST 28 U/L (17-59) 10/30/19 23:25 Alkaline Phosphatase 66 U/L (38-126) 10/30/19 23:25 Total Protein 6.9 g/dL (6.3-8.2) 10/30/19 23:25 Albumin 4.0 g/dL (3.5-5.0) 10/30/19 23:25 10/30/19 10/30/19 10/30/19 22:50 22:50 23:25 Creatine Kinase Cancelled 256 H CK-MB (CK-2) Cancelled Troponin I Cancelled 10/30/19 10/31/19 10/31/19 23:25 01:45 02:38 Creatine Kinase CK-MB (CK-2) 1.07 Troponin I 0.084 Cancelled 0.217 Assessment & Plan - Diagnosis (1) NSTEMI (non-ST elevated myocardial infarction) Is this a current diagnosis for this admission?: Yes Plan: 43-year-old male with history of coronary artery disease status post PCI x2 at [facility] in 2016. Unfortunately the patient does not have the stent cards and does not remember and if his cardiac history. He had an episode of chest pain last night associated with a mildly elevated troponin consistent with an NSTEMI. His telemetry shows normal sinus rhythm without any sustained atrial or ventricular dysrhythmias and has remained asymptomatic. At this point the patient needs to be transferred to [facility] for invasive assessment with left heart catheterization. I discussed the case with Dr. Wolfe who is now aware of the patient and willing to proceed with invasive assessment. Recommendations: -Continue with current medical management. -N.p.o. -Start metoprolol succinate 25 mg daily. -Transfer to [facility] for invasive assessment and further management. (2) Hypertension Qualifiers: Hypertension type: essential hypertension Qualified Code(s): I10 - Essential (primary) hypertension Is this a current diagnosis for this admission?: Yes Plan: His blood pressure is currently at goal. Recommendations: -Continue with current medical management. (3) Dyslipidemia Is this a current diagnosis for this admission?: Yes Plan: The patient is currently on high intensity statin therapy. Recommendations: -Fasting LFTs and lipid panel. -Continue with atorvastatin 80 mg daily. (4) Tobacco abuse Is this a current diagnosis for this admission?: Yes Plan: The patient was counseled about the importance of quitting tobacco.
[2019-10-31] MEDS ORDERED: CLOPIDOGREL BISULFATE 300 MG TABLET PO ONE (09:00)
--- NOTE | 2019-10-31 09:40 | PDOC TRANSFER SUMMARY ---
General Admission Date/PCP: 10/31/19 03:48 Admission Date: 10/31/19 Transfer Date: 10/31/19 Accepting Facility: [facility] Resuscitation Status: Full Code - Transfer Diagnosis (1) NSTEMI (non-ST elevated myocardial infarction) Is this a current diagnosis for this admission?: Yes (2) Dyslipidemia Is this a current diagnosis for this admission?: Yes (3) Hypertension Is this a current diagnosis for this admission?: Yes (4) Tobacco abuse Is this a current diagnosis for this admission?: Yes - Transfer Medications Home Medications: Omeprazole Magnesium [Prilosec Otc] 20 mg PO DAILY 10/31/19 Transfer Medications: Current Medications Acetaminophen (Tylenol 325 Mg Tablet) 650 mg PO Q4HP PRN PRN Reason: FOR HEADACHE Stop: 11/30/19 03:31 Last Admin: 10/31/19 05:13 Dose: 650 mg Documented by: Aspirin (Ecotrin 81 Mg Ec Tablet) 81 mg PO DAILY [facility] Stop: 11/30/19 09:59 Atorvastatin Calcium (Lipitor 80 Mg Tablet) 80 mg PO QHS YOSEPH Stop: 11/30/19 03:44 Last Admin: 10/31/19 03:57 Dose: 80 mg Documented by: Enoxaparin Sodium (Lovenox Inj 100 Mg/1 Ml Disp.Syrin) 90 mg SUBCUT Q12 [facility] Stop: 11/30/19 00:29 Last Admin: 10/31/19 01:31 Dose: 90 mg Documented by: Nitroglycerin (Nitrostat 0.4 Mg (1/150 Gr) Tabs 25/Bottle) 1 tab SL Q5MP PRN PRN Reason: FOR CHEST PAIN Sodium Chloride (Saline Flush 2.5 Ml Monoject Prefil Syrin) 2.5 ml IV Q8 YOSEPH Stop: 11/30/19 05:59 Last Admin: 10/31/19 06:23 Dose: Not Given Documented by: - Allergies Allergies/Adverse Reactions: codeine [Codeine] Allergy (Verified 09/24/10 11:32) Pruritis - Diet/Activity Discharge Diet: Other (Comments) - NPO Discharge Activity: Activity As Tolerated Hospital Course Hospital Course: Per H&P by Dr. Wilson: ISAK ALVARADO JR is a 43 year old male with a past medical history of hypertension, coronary artery disease status post coronary artery stents at [facility] 2016, tobacco dependence without medications for at least 2 years. He presents with sudden onset of 10 out of 10 left-sided chest pain which radiated to to his left shoulder exacerbated by deep breathing and exertion. He took 2 aspirin and called EMS who administered inhaled nitroglycerin completely resolving his pain after 2 treatments. In the emergency department he is found to have an indeterminate troponin which is ris en from 0.0820.21, his EKG is unchanged from previous with right bundle branch block and left anterior fascicular block. He remains pain-free and referred to the hospitalist for admission. Course: Patient was admitted to [facility] on continuous cardiac telemetry. He was placed on aspirin, full dose Lovenox, nitroglycerin paste, and atorvastatin with prn Lopressor for blood pressure control. Serial troponins are being monitored; continue to trend up. 0.084-> 0.217. However, patient has remained chest pain-free since being administered nitroglycerin upon arrival to the ED. Cardiology has been consulted. Dr. Mancilla evaluated the patient earlier this morning and recommend continued n.p.o. status with the above mentioned medical management and urgent transfer to [facility] for invasive assessment and further management. Dr. Mancilla is spoken with Dr. Wolfe, interventional cardiology, to arrange for evaluation for cardiac cath upon arrival. Dr. Frost with the hospitalist service is graciously agreed to accept this patient to her care to facilitate transfer to [facility]. At time of transfer, patient is chest pain-free, and in stable condition. Physical Exam Vital Signs: Temp Pulse Resp BP Pulse Ox 97.8 F 63 16 116/76 97 10/31/19 07:17 10/31/19 07:17 10/31/19 07:17 10/31/19 07:17 10/31/19 07:17 Intake & Output 10/30/19 10/31/19 11/01/19 06:59 06:59 06:59 Weight 88.5 kg General appearance: PRESENT: no acute distress, well-developed, well-nourished Head exam: PRESENT: atraumatic, normocephalic Eye exam: PRESENT: conjunctiva pink, EOMI, PERRLA. ABSENT: scleral icterus Ear exam: PRESENT: normal external ear exam Mouth exam: PRESENT: moist, tongue midline Neck exam: ABSENT: carotid bruit, JVD, lymphadenopathy, thyromegaly Respiratory exam: PRESENT: clear to auscultation marlene. ABSENT: rales, rhonchi, wheezes Cardiovascular exam: PRESENT: RRR. ABSENT: diastolic murmur, rubs, systolic murmur Pulses: PRESENT: normal dorsalis pedis pul Vascular exam: PRESENT: normal capillary refill GI/Abdominal exam: PRESENT: normal bowel sounds, soft. ABSENT: distended, guarding, mass, organolmegaly, rebound, tenderness Rectal exam: PRESENT: deferred Extremities exam: PRESENT: full ROM. ABSENT: calf tenderness, clubbing, pedal edema Neurological exam: PRESENT: alert, awake, oriented to person, oriented to place, oriented to time, oriented to situation, CN II-XII grossly intact. ABSENT: motor sensory deficit Psychiatric exam: PRESENT: appropriate affect, normal mood. ABSENT: homicidal ideation, suicidal ideation Skin exam: PRESENT: dry, intact, warm. ABSENT: cyanosis, rash Results Laboratory Results: 10/30/19 22:50 10/30/19 23:25 10/30/19 10/30/19 10/30/19 22:50 22:50 23:25 WBC 16.2 H RBC 4.85 Hgb 15.2 Hct 42.0 MCV 87 MCH 31.4 MCHC 36.2 H RDW 14.5 H Plt Count 310 Seg Neutrophils % 66.1 Sodium Cancelled 135.7 L Potassium Cancelled 3.7 Chloride Cancelled 104 Carbon Dioxide Cancelled 22 Anion Gap Cancelled 10 BUN Cancelled 8 Creatinine Cancelled 0.86 Est GFR ( Amer) Cancelled > 60 Est GFR (Non-Af Amer) Cancelled Glucose Cancelled 113 H Calcium Cancelled 9.1 Total Bilirubin Cancelled 0.3 AST Cancelled 28 Alkaline Phosphatase Cancelled 66 Total Protein Cancelled 6.9 Albumin Cancelled 4.0 10/30/19 10/30/19 10/30/19 22:50 22:50 23:25 Creatine Kinase Cancelled 256 H CK-MB (CK-2) Cancelled Troponin I Cancelled 10/30/19 10/31/19 10/31/19 23:25 01:45 02:38 Creatine Kinase CK-MB (CK-2) 1.07 Troponin I 0.084 Cancelled 0.217 Impressions: Chest X-Ray 10/30/19 00:00 IMPRESSION: No acute cardiopulmonary findings. Plan Discharge Plan: Transfer to [facility] under the care of Dr. Frost with Dr. Wolfe, cardiology, consulting. Time Spent: Greater than 30 Minutes
[2019-10-31] MEDS ORDERED: ASPIRIN 81 MG TABLET, ENT COATED PO SCH (10:00)
--- NOTE | 2019-10-31 10:08 | EKG REPORT ---
SEVERITY:- ABNORMAL ECG - SINUS RHYTHM RBBB AND LAFB : Confirmed by: Rosa Sandhu MD 31-Oct-2019 10:07:41
--- NOTE | 2019-10-31 10:08 | EKG REPORT ---
SEVERITY:- ABNORMAL ECG - SINUS RHYTHM RBBB AND LAFB : Confirmed by: Rosa Sandhu MD 31-Oct-2019 10:07:30
--- NOTE | 2019-10-31 10:08 | EKG REPORT ---
SEVERITY:- ABNORMAL ECG - SINUS RHYTHM RBBB AND LAFB : Confirmed by: Rosa Sandhu MD 31-Oct-2019 10:07:35
== END 2019-10-31 10:42 | disposition short-term general hospital (02) | DRG 282 ==
LOC: ER 22:30 → EH 10-31 03:48 → 4W 10-31 05:45
PROVIDERS: ADMIT Internal Medicine; ATTEND Registered Nurse
DX: I21.4 Non-ST elevation (NSTEMI) myocardial infarction (principal); I10 Essential (primary) hypertension; I25.10 Atherosclerotic heart disease of native coronary artery without angina pectoris; F17.210 Nicotine dependence, cigarettes, uncomplicated; E78.5 Hyperlipidemia, unspecified; Z95.5 Presence of coronary angioplasty implant and graft; Z88.5 Allergy status to narcotic agent
CPT/HCPCS: 36415; 71046; 80053; 82550; 82553; 83036; 84484; 85025; 93005; 93010; 96372; 99285; J1650

== ENCOUNTER → 2019-11-22 | Outpatient (CLI) | payer BC ==
--- NOTE | 2019-11-22 10:12 | RADIOLOGY REPORT (SQ) ---
EXAM DESCRIPTION: ARTERIAL UPPER EXTREM UNILAT IMAGES COMPLETED DATE/TIME: 11/22/2019 9:35 am REASON FOR STUDY: RUE PAIN R22.31 LOCALIZED SWELLING, MASS AND LUMP, RIGHT UPPER LIMB COMPARISON: None. TECHNIQUE: Dynamic and static ko scale and color images acquired of the right upper extremity wade daisy. Additional selected spectral images recorded. Images saved to PACS. LIMITATIONS: None. FINDINGS: SUBCLAVIAN: Normal Doppler waveforms. No velocity elevation to suggest stenosis. AXILLARY: Normal Doppler waveforms. No velocity elevation to suggest stenosis. Normal color Doppler evaluation. BRACHIAL: Normal Doppler waveforms. No velocity elevation to suggest stenosis. Normal color Doppler evaluation. RADIAL: Normal Doppler waveforms. No velocity elevation to suggest stenosis. Normal color Doppler e valuation. ULNAR: Normal Doppler waveforms. No velocity elevation to suggest stenosis. Normal color Doppler ev aluation. OTHER: 2 cm diameter nonvascular lesion in the axilla consistent with hematoma. IMPRESSION: No evidence of pseudoaneurysm. 2 cm hematoma. TECHNICAL DOCUMENTATION: JOB ID: [id number] 2010 [employer]- All Rights Reserved Reading location - IP/workstation name: [email or web address]
== END ==
LOC: SP 07:51
PROVIDERS: ATTEND Internal Medicine Cardiovascular Disease
DX: R22.31 Localized swelling, mass and lump, right upper limb (principal)
CPT/HCPCS: 93931